=== PATIENT | male | born 1955 | race Caucasian/White ===

== ENCOUNTER 2019-09-23 09:48 | Outpatient (RCR) | payer BC, SELFPAY | END 2019-10-05 23:59 | disposition home or self-care (01) | LOC: SPT 09:48 | PROVIDERS: PCP Family Medicine; Visit Provider Orthopaedic Surgery | DX: M17.31 Unilateral post-traumatic osteoarthritis, right knee (principal); Z96.651 Presence of right artificial knee joint | CPT/HCPCS: 97110; 97161 ==

== ENCOUNTER 2019-10-06 06:00 | Outpatient (RCR) | payer BC, SELFPAY | END 2019-11-05 23:59 | disposition home or self-care (01) | LOC: SPT 06:00 | PROVIDERS: PCP Family Medicine; Visit Provider Orthopaedic Surgery | DX: M17.31 Unilateral post-traumatic osteoarthritis, right knee (principal) | CPT/HCPCS: 97110 ==

== ENCOUNTER 2019-11-06 06:00 | Outpatient (RCR) | payer BC, SELFPAY | END 2019-12-06 23:59 | disposition home or self-care (01) | LOC: SPT 06:00 | PROVIDERS: PCP Family Medicine; Visit Provider Orthopaedic Surgery | DX: M17.11 Unilateral primary osteoarthritis, right knee (principal) | CPT/HCPCS: 97110 ==

== ENCOUNTER 2019-12-07 06:00 | Outpatient (RCR) | payer BC, SELFPAY | END 2020-01-05 23:59 | disposition home or self-care (01) | LOC: SPT 06:00 | PROVIDERS: PCP Family Medicine; Visit Provider Orthopaedic Surgery | DX: Z47.1 Aftercare following joint replacement surgery (principal); Z96.651 Presence of right artificial knee joint | CPT/HCPCS: 97110 ==

== ENCOUNTER 2020-03-14 06:00 | Outpatient (RCR) | payer BC, SELFPAY | END 2020-04-05 23:00 | disposition home or self-care (01) | LOC: SPT 06:00 | PROVIDERS: PCP Family Medicine; Referring Provider Orthopaedic Surgery; Visit Provider Orthopaedic Surgery | DX: Z47.89 Encounter for other orthopedic aftercare (principal) | CPT/HCPCS: 97110; 97161 ==

== ENCOUNTER → 2020-03-20 08:11 | Outpatient (BNVA) | payer BC, SELFPAY | PROVIDERS: PCP Family Medicine; Visit Provider Urology | DX: N40.1 Benign prostatic hyperplasia with lower urinary tract symptoms (principal); E29.1 Testicular hypofunction; N52.1 Erectile dysfunction due to diseases classified elsewhere | CPT/HCPCS: 81003; 84403; G0103 ==

== ENCOUNTER → 2021-03-20 08:05 | Outpatient (BNVA) | payer BC, SELFPAY | PROVIDERS: PCP Family Medicine; Visit Provider Urology | DX: N40.1 Benign prostatic hyperplasia with lower urinary tract symptoms (principal); N52.1 Erectile dysfunction due to diseases classified elsewhere | CPT/HCPCS: 84403; G0103 ==

== ENCOUNTER → 2021-06-14 07:51 | Outpatient (BNVA) | payer BC, SELFPAY | PROVIDERS: PCP Family Medicine; Visit Provider Urology | DX: R97.20 Elevated prostate specific antigen [PSA] (principal) | CPT/HCPCS: G0103 ==

== ENCOUNTER 2021-07-02 15:52 | Observation (INO) | payer BC, SELFPAY ==
[2021-07-02] VITALS (7 sets, daily range): BP systolic 123–157; BP diastolic 64–87; PULSE 56–80; RESP 16–18; O2SAT 94–98; BMI 30.2
--- NOTE | 2021-07-02 16:13 | XRR_ITS ---
PROCEDURE INFORMATION: Exam: XR Chest Exam date and time: 07/02/2021 4:49 PM Age: 66 years old Clinical indication: Shortness of breath; Additional info: Dyspnea/cough TECHNIQUE: Imaging protocol: XR of the chest. Views: 1 view. COMPARISON: CR (CHEST, ) 07/02/2021 4:43 PM FINDINGS: Lungs: Right apical pneumothorax with 13 mm of separation between the lung and pleura as noted on same-day CT abdomen and pelvis. Pleural spaces: See Lungs finding. Heart/Mediastinum: Unremarkable. No cardiomegaly. Bones/joints: Right glenoid and scapular fracture better evaluated on same-day right shoulder radiograph along with several right rib fractures. XR/XR chest 1V portable [id number] IMPRESSION: 1. Right apical pneumothorax with 13 mm of separation between the lung and pleura as noted on same-day CT abdomen and pelvis. 2. Right glenoid and scapular fracture better evaluated on same-day right shoulder radiograph along with several right rib fractures.
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
--- NOTE | 2021-07-02 16:13 | ECG_ITS ---
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 Measurements Intervals [place] Rate: 72 P: 71 HI: 183 QRS: -4 QRSD: 111 T: 60 QT: 370 QTc: 407 Interpretive Statements SINUS RHYTHM MODERATE INTRAVENTRICULAR CONDUCTION DELAY [110+ ms QRS DURATION] No previous ECG available for comparison Electronically Signed On 07-02-2021 22:00:30 CDT by Art Amezcua M.D. [id number]
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
[2021-07-02] MEDS: ondansetron 2 mg/ML SDV 2 mL 4 MG IVP (16:34)
[2021-07-02] MEDS: morphine 4 mg/mL SDV 1 mL IVP (16:34)
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
[2021-07-02 16:37] LABS: Basophils # 0.1 10^3/uL (0.0-0.1); Basophils % 0.3 %; Eosinophils # 0.2 10^3/uL (0.0-0.8); Eosinophils % 0.9 %; Hematocrit 45.1 % (42.0-52.0); Hemoglobin 15.3 g/dL (11.7-16.6); Lymphocytes % 5.4 %; Mean Corpuscular HGB Conc 33.9 g/dL (30.0-36.0); Mean Corpuscular Hemoglobin 30.5 pg (28.0-34.0); Mean Platelet Volume 11.6 fL (7.4-10.4); Monocytes # 0.8 10^3/uL (0.2-0.9); Monocytes % 4.8 %; Neutrophils # 15.31 10^3/uL (1.8-7.7); Neutrophils % 87.7 %; Nucleated Red Blood Cells % 0 %; Platelet Count 147 10^3/cmm (130-400); Red Blood Count 5.01 10^6/uL (4.1-5.3); Red Cell Distribution Width 14.6 % (12.1-15.1); White Blood Count 17.4 10^3/uL (4.0-10.0)
[2021-07-02 16:57] LABS: Alanine Aminotransferase 30 U/L (0-41); Albumin Level 4.4 g/dL (3.5-5.2); Alkaline Phosphatase 72 IU/L (40-130); Anion Gap 11.9 (5-19); Aspartate Amino Transferase 34 U/L (0-40); Blood Urea Nitrogen 21 mg/dL (8-23); Calcium 9.8 mg/dL (8.5-10.5); Carbon Dioxide 26 mmol/L (22-29); Chloride 102 mmol/L (98-107); Globulin 2.2 g/dL (1.3-4.6); Glomerular Filtration Rate 75.2 mL/min (90-130); Glucose 142 mg/dL (65-115); Osmolality Calculated 287 mOsm/kg (285-295); Potassium 3.9 mmol/L (3.5-5.1); Sodium 136 mmol/L (136-145); Total Bilirubin 1.1 mg/dL (0.15-1.2); Total Protein 6.6 g/dL (6.6-8.7)
[2021-07-02] MEDS: fentaNYL 50 mcg/mL INJ 2mL IVP (17:14)
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
--- NOTE | 2021-07-02 17:34 | PC.PHAR ---
pt and pts verified medications-pt states he had a proair inhaler last filled 12/14/20 pt states he doesnt use-
[2021-07-02] MEDS: iodixanol 320 mg/mL 100mL Btl IV (17:53)
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
[2021-07-02] MEDS: iohexol 300 mg/mL 100 mL Btl IV (18:38)
[2021-07-02 19:16] LABS: Add Urine Microscopic? NO; Charge for UA Resulting for Rev
[2021-07-02 19:18] LABS: Bilirubin Urine Neg (Negative); Blood Urine Neg (Negative); Glucose Urine UA Norm (Normal); Ketones Urine Negative (Negative); Leukocyte Esterase Urine Negative (Negative); Nitrate Urine Negative (Negative); Protein Urine Neg (Negative); Specific Gravity, Urine 1.015 (1.005-1.030); Urine Appearance Clear (CLEAR); Urine Color Yellow (Yellow); Urobilinogen Urine Norm (Negative); pH Urine 5 (5-7)
[2021-07-02] MEDS: HYDROmorphone 1 mg/mL INJ 1 mL IVP (20:53)
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
--- NOTE | 2021-07-02 23:00 | XRR_ITS ---
PROCEDURE INFORMATION: Exam: XR Chest Exam date and time: 07/02/2021 7:08 PM Age: 66 years old Clinical indication: Shortness of breath; Additional info: Pneumothorax TECHNIQUE: Imaging protocol: XR of the chest. Views: 1 view. COMPARISON: CT chest w con* [id number] 07/02/2021 6:19 PM FINDINGS: Lungs: Emphysematous changes. Right hilar to lower lobe atelectasis versus infiltrate. Pleural spaces: Unremarkable. No pleural effusion. No pneumothorax. Heart/Mediastinum: Unremarkable. No cardiomegaly. Bones/joints: Unremarkable. XR/XR chest 1V portable [id number] IMPRESSION: 1. Emphysematous changes. 2. Right hilar to lower lobe atelectasis versus infiltrate.
--- NOTE | 2021-07-02 23:43 | XRR_ITS ---
PROCEDURE INFORMATION: Exam: XR Chest Exam date and time: 07/02/2021 11:54 PM Age: 66 years old Clinical indication: Other: Follow up; Additional info: Pneumothorax TECHNIQUE: Imaging protocol: XR of the chest. Views: 1 view. COMPARISON: CR (CHEST, ) 07/02/2021 7:08 PM FINDINGS: Lungs: Unremarkable. No consolidation. Pleural spaces: Small volume right apical pneumothorax stable in size from prior. No pleural effusion. Heart/Mediastinum: Unremarkable. No cardiomegaly. Bones/joints: Redemonstration of right scapular fracture. Multiple right lateral rib fractures. XR/XR chest 1V portable [id number] IMPRESSION: Stable appearance of small right pneumothorax.
[2021-07-03] VITALS (12 sets, daily range): BP systolic 135–171; BP diastolic 76–102; PULSE 54–85; RESP 10–18; TEMP 36.7; O2SAT 94–96
[2021-07-03] MEDS: sodium chloride 0.9% 1,000 ML 75 ML IV ×2 (03:58→15:55)
--- NOTE | 2021-07-03 05:06 | XR_ITS ---
WS: [id number] Exam: XR chest 1V portable [id number] Date/Time of Exam: 07/03/2021 5:06 AM Reason For Exam: pneumothorax comparison 07/02/2021. Small right upper lobe pneumothorax noted estimated at 10%. Remaining lung montgomery are clear. Cardiome diastinal silhouette is unremarkable. Fractures of the third, fourth, fifth and sixth right ribs agai n noted. Comminuted scapular fracture again noted but only partially visualized. No pleural effusions are seen. Monitoring leads superimpose the chest. XR/XR chest 1V portable [id number] IMPRESSION: 1. Small right upper lobe pneumothorax estimated at 10%. Very little change sin ce prior study. 2. Multiple right rib fractures. Comminuted right scapular fracture as previous ly noted.
[2021-07-03 07:09] LABS: Basophils % 0.2 %; Eosinophils # 0.2 10^3/uL (0.0-0.8); Eosinophils % 1.5 %; Hematocrit 43.5 % (42.0-52.0); Hemoglobin 14.6 g/dL (11.7-16.6); Lymphocytes # 1.2 10^3/uL (0.8-4.8); Lymphocytes % 11.1 %; Mean Corpuscular HGB Conc 33.6 g/dL (30.0-36.0); Mean Corpuscular Hemoglobin 30.1 pg (28.0-34.0); Mean Corpuscular Volume 89.7 fl (80-94); Mean Platelet Volume 11.8 fL (7.4-10.4); Monocytes # 0.8 10^3/uL (0.2-0.9); Monocytes % 7.3 %; Neutrophils # 8.49 10^3/uL (1.8-7.7); Neutrophils % 79.6 %; Nucleated Red Blood Cells % 0 %; Platelet Count 130 10^3/cmm (130-400); Red Blood Count 4.85 10^6/uL (4.1-5.3); Red Cell Distribution Width 14.6 % (12.1-15.1); White Blood Count 10.7 10^3/uL (4.0-10.0)
[2021-07-03 07:26] LABS: Blood Urea Nitrogen 15 mg/dL (8-23); Calcium 9.7 mg/dL (8.5-10.5); Carbon Dioxide 24 mmol/L (22-29); Chloride 102 mmol/L (98-107); Creatinine Clr Calc Pharmacy 150.3811; Glomerular Filtration Rate 113.5 mL/min (90-130); Glucose 131 mg/dL (65-115); Osmolality Calculated 283 mOsm/kg (285-295); Sodium 135 mmol/L (136-145)
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
[2021-07-03] MEDS: oxyCODONE-APAP 5-325 mg Tablet 1 TAB PO ×3 (07:47→20:41)
--- NOTE | 2021-07-03 09:06 | CT_ITS ---
WS: [id number] CT RIGHT ANKLE HISTORY: Right trimalleolar fracture, preoperative planning COMPARISON: 07/02/2021 RIGHT ankle radiograph. Technique: All CT scans at [facility] use at least one of these dose optimization techniques: automated exposure control; mA and/or kV adjustment per patient size (includes targeted exams where dose is matched to clinical indication); or iterative reconstruction. DLP: 110.65 mGy.cm Markedly comminuted fracture dislocation at the RIGHT ankle joint. Long oblique fracture through the distal fibula extends above the syndesmosis and extends over a length greater than 4 cm. Distal fibul ar fracture is oblique and by at least 1.8 cm. There are multiple comminuted fractures carla g the fracture line. There is also tiny avulsion fracture from the distal fibular tip. There is widening of the distal tibiofibular articulation consistent with interruption of the interos seous membrane. Widening is up to 1.4 cm. Widening of the ankle mortise up to 2.1 cm with multiple os seous fragments from the medial malleolus within the joint space widening. The comminuted fracture in volving the medial malleolus. There are multiple bony fragments extending posterior. There is an obli que comminuted fracture involving the posterior malleolus by 0.7 cm. There is also widening of the tibiotalar joint space and asymmetry. There is mild sclerosis and slight deformity involving the medial talus. This could be very slight im paction cortex. Otherwise the talus is intact. No calcaneal fracture identified. There is surface and cortical irregularity involving the navicular and intermediate cuboid. Favor the se are probably osteophytes and degenerative change. Tiny avulsion ruptures not completely excluded. Multiple calcifications along the plantar aponeurosis. Calcaneal spur. There is additional heavy calc ification along the distal Achilles tendon tendon. Large amount of soft tissue edema surrounding the ankle. CT/CT ankle RT wo con* [id number] IMPRESSION: 1. Comminuted trimalleolar fracture/dislocation at the ankle. 2. Oblique fracture distal fibula extends above the syndesmosis and by at least 1.8 cm. 3. Widening of the distal tibiofibular articulation consistent with interrupti on of the intraosseous membrane. If the proximal tibia and fibula have not been imaged suggest radiographs of the entire tibia and fibula to exclude more prox imal fracture which can be seen with this type of injury. 4. Widening of the medial ankle mortise up to 2.1 cm with multiple osseous fra gments displaced from the medial malleolus and extending into the posterior mal leolus fracture. 5. Possible slight impaction fracture along the medial talus.
[2021-07-03] MEDS: acetaminophen 325 mg Tablet 650 MG PO ×2 (11:18→17:19)
[2021-07-03 12:57] LABS: Adenovirus Not Detected (NOT DETECT); Chlamydia Pneumoniae Not Detected (NOT DETECT); Coronavirus 229E,HKU1,NL63,OC4 Not Detected (NOT DETECT); Human Metapneumovirus Not Detected (NOT DETECT); Human Rhinovirus/Enterovirus Not Detected (NOT DETECT); Influenza A Not Detected (NOT DETECT); Influenza A H1 Not Detected (NOT DETECT); Influenza A H1-2009 Not Detected (NOT DETECT); Influenza A H3 Not Detected (NOT DETECT); Influenza B Not Detected (NOT DETECT); Mycoplasma Pneumoniae Not Detected (NOT DETECT); Parainfluenza Virus Type 1 Not Detected (NOT DETECT); Parainfluenza Virus Type 2 Not Detected (NOT DETECT); Parainfluenza Virus Type 3 Not Detected (NOT DETECT); Parainfluenza Virus Type 4 Not Detected (NOT DETECT); Respiratory Syncytial Virus A Not Detected (NOT DETECT); Respiratory Syncytial Virus B Not Detected (NOT DETECT); SARS-COV-2 Not Detected (NOT DETECT)
[2021-07-03] MEDS: ketorolac 30 mg/mL INJ 15 MG IVP (15:56)
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
[2021-07-03] MEDS: tamsulosin 0.4 mg Capsule PO (17:17)
[2021-07-03] MEDS: gabapentin 300 mg Capsule PO (20:41)
[2021-07-04] VITALS (19 sets, daily range): BP systolic 126–157; BP diastolic 74–98; PULSE 55–85; RESP 13–24; O2SAT 93–97
[2021-07-04] MEDS: acetaminophen 325 mg Tablet 650 MG PO (04:07)
[2021-07-04 04:18] LABS: Basophils % 0.1 %; Eosinophils # 0.3 10^3/uL (0.0-0.8); Eosinophils % 2.8 %; Hematocrit 42.6 % (42.0-52.0); Hemoglobin 14.3 g/dL (11.7-16.6); Lymphocytes # 1.5 10^3/uL (0.8-4.8); Lymphocytes % 14.6 %; Mean Corpuscular HGB Conc 33.6 g/dL (30.0-36.0); Mean Corpuscular Hemoglobin 30.7 pg (28.0-34.0); Mean Corpuscular Volume 91.4 fl (80-94); Mean Platelet Volume 11.7 fL (7.4-10.4); Monocytes # 0.9 10^3/uL (0.2-0.9); Monocytes % 8.6 %; Neutrophils # 7.33 10^3/uL (1.8-7.7); Neutrophils % 73.6 %; Nucleated Red Blood Cells % 0 %; Platelet Count 118 10^3/cmm (130-400); Red Blood Count 4.66 10^6/uL (4.1-5.3); Red Cell Distribution Width 14.6 % (12.1-15.1)
[2021-07-04 04:50] LABS: Blood Urea Nitrogen 13 mg/dL (8-23); Calcium 9.5 mg/dL (8.5-10.5); Carbon Dioxide 26 mmol/L (22-29); Chloride 104 mmol/L (98-107); Glucose 112 mg/dL (65-115); Osmolality Calculated 291 mOsm/kg (285-295); Sodium 140 mmol/L (136-145)
--- NOTE | 2021-07-04 06:28 | XR_ITS ---
WS: [id number] Exam: XR chest 1V portable [id number] Date/Time of Exam: 07/04/2021 4:40 AM Reason For Exam: right ptx with rib fx Comparison 07/03/2021. Again noted is about 10% pneumothorax of the upper lobe of the right lung. Diffuse infiltrate has dev eloped in the right lower lung zone since prior study. Left lung is clear and fully inflated. Again n oted are several right rib fractures. Right scapular fracture difficult to identify on today's study. Normal cardiomediastinal silhouette. No midline shift. No pleural effusion. Monitoring leads superim pose the chest. XR/XR chest 1V portable [id number] IMPRESSION: 1. -10% pneumothorax of the upper lobe of the right lung unchanged. 2. Development of interstitial infiltrate in the right lower lung zone since pr evious study.
[2021-07-04] MEDS: tamsulosin 0.4 mg Capsule PO (08:21)
[2021-07-04] MEDS: famotidine 20 mg Tablet PO (08:21)
[2021-07-04] MEDS: gabapentin 300 mg Capsule PO (08:21)
[2021-07-04] MEDS: oxyCODONE-APAP 5-325 mg Tablet 1 TAB PO ×2 (11:01→11:45)
--- NOTE | 2021-07-04 11:53 | PC.CHAP ---
Pastoral Care Encounter/Spiritual Assessment Type of Contact [] Declined cinetechnician visit [] Patient/Family/Request visit [] Outpatient visit [] Follow-up visit [] Physician referral [] Code/Alert [x] Routine visit [] Staff referral [] Actively dying [] Patient sleeping [] Family support [] [] Out of room [] Palliative care [] [] Receiving care in room [] Pre-surgical visit [] Trauma [] Long length of stay [x] ICU visit [] Other: Relational/Emotional Strength [] Patient feels connected with others/family/visitors/staff [] Distress [] Loneliness/isolation [] Abandonment Spirituality of Patient [] Person of Estefani [] Attends Yarsanism of their Estefani [] Believes in Prayer [] Reads Bible or Baptism materials [] There are Spiritual issues to be addressed Information Systems Consultant Interventions [x] Prayer [] Active listening [] Non-anxious presence [] Spiritual/emotional support [] Crisis/trauma care [] Spiritual counseling [] Bereavement support [] Provided bereavement packet [] Provided Bible/devotional materials [] Provided toy/stuffed animal, coloring book to patient or family member [] Provided Communion [] Anointing/Hull [] Salvation [x] Completed spiritual assessment [] Other: Impact on Illness or Injury [] Angry [] Fearful [] Anxious [] Often cries [] Exhaustion [] Unable to work [] Unable to attend evangelical [] Unable to walk/stand [] Unable to read [] Unable to drive [] Unable to eat/drink [] Unable to sleep [] Unable to be with family [] Patient intubated [] Other: Summary Time spent with patient
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
--- NOTE | 2021-07-04 16:15 | PC.NURSE ---
Discharge instructions given per physician's orders, patient verbalized understanding. Bilateral AC IVs removed, catheters intact. Pressure dressings applied, patient tolerated well. [facility] pharmacy dropped of prescriptions medications with meds to bed. All belongings taken with patient upon discharge. Patient transferred to wheelchair with two SBA and accompanied by this nurse and YASMINE Patel to POV. assisted patient to passenger seat of POV, patient tolerated well.
== END 2021-07-04 15:40 | disposition home or self-care (01) ==
LOC: ER 23:30 → ICU 07-03 00:30
PROVIDERS: Family Medicine; Podiatrist Foot & Ankle Surgery; Admitting Provider Surgery; Emergency Provider Emergency Medicine; PCP Family Medicine; Visit Provider Surgery
DX: S22.41XA Multiple fractures of ribs, right side, initial encounter for closed fracture (principal); S82.851A Displaced trimalleolar fracture of right lower leg, initial encounter for closed fracture; S27.0XXA Traumatic pneumothorax, initial encounter; S42.101A Fracture of unspecified part of scapula, right shoulder, initial encounter for closed fracture; V89.2XXA Person injured in unspecified motor-vehicle accident, traffic, initial encounter; N40.1 Benign prostatic hyperplasia with lower urinary tract symptoms; N13.8 Other obstructive and reflux uropathy; F17.210 Nicotine dependence, cigarettes, uncomplicated
CPT/HCPCS: 27818; 36415; 70450; 71045; 71260; 72125; 73030; 73600; 73610; 73700; 74177; 80048; 80053; 81003; 85025; 87635; 93005; 96374; 96375; 97161; 97530; 99152; 99285; G0378; J1170; J1885; J2270; J2405; J3010; J3490; J7030; Q9967

== ENCOUNTER 2021-07-06 06:57 | Day surgery (SDC) | payer BC, SELFPAY ==
[2021-07-05 15:46] VITALS: BMI 30.2
[2021-07-06] VITALS (10 sets, daily range): BP systolic 87–145; BP diastolic 61–93; PULSE 69–89; RESP 10–19; TEMP 36.3–36.8; O2SAT 93–97
--- NOTE | 2021-07-06 | SCC_ITS ---
Procedure done: Open reduction internal fixation right trimalleolar fracture. CPT code 45367 79 seconds of fluoroscopic guidance, for a cumulative dose of 2.423 mGy, was provided to Dr. Moore by the radiology department. C-arm images of the right ankle were saved for the patient's permanent record. [facility]
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
[2021-07-06] MEDS: sodium chloride 0.9% 1,000 ML 30 ML IV (07:45)
[2021-07-06] MEDS: gabapentin 300 mg Capsule PO (07:49)
[2021-07-06] MEDS: CELEcoxib 200 mg Capsule 400 MG PO (07:49)
--- NOTE | 2021-07-06 08:16 | W.PM.OPSUD ---
Surgery/Procedure H&P Update DATE OF PROCEDURE: July 06, 2021 DATE H&P PERFORMED: 07/05/20 CHANGES TO PREVIOUS DOCUMENTATION: None PREOP DIAGNOSIS: Right trimalleolar fracture PLANNED PROCEDURE: Operation Date: 07/06/21 08:25 Proposed Procedures p ORIF Ankle 86457/s82.851a(Right) - Yadiel Moore DPM
--- NOTE | 2021-07-06 08:18 | SC_ITS ---
WS: [id number] EXAMINATION: Right ankle in surgery July 06, 2021 HISTORY: Complex right ankle fracture FINDINGS: Plate and screw fixation of distal fibular spiral fracture. Long screw fixation of oblique medial malleolar fracture. Transverse tibial fibular anchor. Fracture fragments and bone structure are in proper position and alignment. Ankle joint spaces relatively well-preserved. SC/C-arm Mini [id number] IMPRESSION: Postoperative right ankle as above.
[2021-07-06] MEDS: ceFAZolin 3,000 MG in sodium chloride 0.9% (100 ml) 100 ML 200 MG IV (08:25)
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
[2021-07-06] MEDS: lidocaine 2% INJ 20 mL INJECTION (09:13)
--- NOTE | 2021-07-06 09:45 | XR_ITS ---
WS: [id number] Exam: XR ankle RT min 3V* [id number] Date/Time of Exam: 07/06/2021 9:45 AM Reason For Exam: post op Comparison 07/02/2021. There is internal orthopedic fixation involving fractures of the lower fibula and medial malleolus. There is cable fixation of the distal fibula and tibia. Surgical skin clips are noted medial and late ral. XR/XR ankle RT min 3V* [id number] IMPRESSION: 1. Bimalleolar fractures with internal fixation.
--- NOTE | 2021-07-06 11:50 | ANE.PACU2 ---
Inpatient post-anesthesia follow up: Airway intact: Yes Vital signs: Temperature 97.3 F Pulse Rate 82 Respiratory Rate 16 Blood Pressure 123/70 Pulse Oximetry 94 Oxygen Delivery Me thod Room Air Oxygen Flow Rate 6 Fraction of Inspir ed Oxygen Hydration adequate: Yes Nausea and vomiting: No Pain level: 1 Mental status: Baseline
== END 2021-07-06 12:50 | disposition home or self-care (01) ==
PROVIDERS: PCP Family Medicine; Visit Provider Podiatrist Foot & Ankle Surgery
PROC: (CPT 27822; principal; 2021-07-06 08:15)
DX: S82.851A Displaced trimalleolar fracture of right lower leg, initial encounter for closed fracture (principal); X58.XXXA Exposure to other specified factors, initial encounter; N40.1 Benign prostatic hyperplasia with lower urinary tract symptoms; N13.8 Other obstructive and reflux uropathy; G47.33 Obstructive sleep apnea (adult) (pediatric); F17.210 Nicotine dependence, cigarettes, uncomplicated
CPT/HCPCS: 27822; 73610; 76000; C1713; J0690; J1100; J2250; J2405; J2704; J3010; J3490; J7030

== ENCOUNTER → 2021-07-19 13:05 | Outpatient (BNVA) | payer BC, SELFPAY | PROVIDERS: PCP Family Medicine; Visit Provider Podiatrist Foot & Ankle Surgery | DX: S82.851A Displaced trimalleolar fracture of right lower leg, initial encounter for closed fracture (principal); X58.XXXA Exposure to other specified factors, initial encounter | CPT/HCPCS: 73610 ==

== ENCOUNTER → 2021-08-06 13:47 | Outpatient (BNVA) | payer BC, SELFPAY | PROVIDERS: PCP Family Medicine; Visit Provider Podiatrist Foot & Ankle Surgery | DX: Z98.890 Other specified postprocedural states (principal) | CPT/HCPCS: 73610 ==

== ENCOUNTER → 2021-08-21 13:03 | Outpatient (BNVA) | payer BC, SELFPAY | PROVIDERS: PCP Family Medicine; Visit Provider Podiatrist Foot & Ankle Surgery | DX: M25.571 Pain in right ankle and joints of right foot (principal); Z98.890 Other specified postprocedural states | CPT/HCPCS: 73610 ==

== ENCOUNTER 2021-08-21 14:50 | Outpatient (CLI) | payer BC, SELFPAY | END 2021-08-21 14:51 | disposition home or self-care (01) | LOC: SPT 14:51 | PROVIDERS: PCP Family Medicine; Visit Provider Podiatrist Foot & Ankle Surgery | DX: Z46.89 Encounter for fitting and adjustment of other specified devices (principal); S82.899D Other fracture of unspecified lower leg, subsequent encounter for closed fracture with routine healing; X58.XXXD Exposure to other specified factors, subsequent encounter | CPT/HCPCS: 97760; L1902 ==

== ENCOUNTER → 2021-09-06 13:58 | Outpatient (BNVA) | payer BC, SELFPAY | PROVIDERS: PCP Family Medicine; Visit Provider Podiatrist Foot & Ankle Surgery | DX: Z98.890 Other specified postprocedural states (principal) | CPT/HCPCS: 73610 ==

== ENCOUNTER → 2021-10-01 11:34 | Outpatient (BNVA) | payer BC, SELFPAY | PROVIDERS: PCP Family Medicine; Visit Provider Podiatrist Foot & Ankle Surgery | DX: Z48.89 Encounter for other specified surgical aftercare (principal); Z98.890 Other specified postprocedural states | CPT/HCPCS: 73610 ==

== ENCOUNTER 2021-10-16 07:05 | Outpatient (CLI) | payer BC, SELFPAY ==
[2021-10-16 07:59] LABS: Testosterone Total 380.8 ng/dL (193-740)
== END 2021-10-16 07:06 | disposition home or self-care (01) ==
LOC: LAB 07:07
PROVIDERS: PCP Family Medicine; Visit Provider Urology
DX: R97.20 Elevated prostate specific antigen [PSA] (principal); R79.89 Other specified abnormal findings of blood chemistry
CPT/HCPCS: 36415; 73610; 81003; 84153; 84403

== ENCOUNTER → 2021-11-07 08:33 | Outpatient (BNVA) | payer BC, SELFPAY | PROVIDERS: PCP Family Medicine; Visit Provider Podiatrist Foot & Ankle Surgery | DX: Z48.89 Encounter for other specified surgical aftercare (principal) | CPT/HCPCS: 73610 ==

== ENCOUNTER → 2022-04-10 09:45 | Outpatient (BNVA) | payer MEDICARE, SELFPAY | PROVIDERS: PCP Family Medicine; Visit Provider Family Medicine | DX: Z00.00 Encounter for general adult medical examination without abnormal findings (principal); N52.1 Erectile dysfunction due to diseases classified elsewhere; Z12.11 Encounter for screening for malignant neoplasm of colon; Z51.81 Encounter for therapeutic drug level monitoring; Z13.220 Encounter for screening for lipoid disorders | CPT/HCPCS: 80053; 80061; 85025 ==

== ENCOUNTER 2022-04-15 08:45 | Outpatient (CLI) | payer MEDICARE, SELFPAY ==
[2022-04-15 10:26] LABS: Prostate Specific AG Urology 3.98 ng/mL (0-4)
[2022-04-15 10:57] LABS: Testosterone Total 709.4 ng/dL (193-740)
== END 2022-04-15 08:46 | disposition home or self-care (01) ==
PROVIDERS: PCP Family Medicine; Visit Provider Urology
DX: E29.1 Testicular hypofunction (principal); R97.20 Elevated prostate specific antigen [PSA]
CPT/HCPCS: 36415; 84153; 84403

== ENCOUNTER → 2022-04-16 08:28 | Outpatient (BNVA) | payer MEDICARE, SELFPAY | PROVIDERS: PCP Family Medicine; Visit Provider Urology | DX: N40.1 Benign prostatic hyperplasia with lower urinary tract symptoms (principal); R97.20 Elevated prostate specific antigen [PSA]; E29.1 Testicular hypofunction; N52.1 Erectile dysfunction due to diseases classified elsewhere | CPT/HCPCS: 81003; 99213 ==